=== PATIENT | female | born 1950 | race Caucasian/White ===

== ENCOUNTER → 2021-03-17 | Outpatient (CLI) | payer MEDICARE ==
[2021-03-17 10:37] LABS: BASO % 0.2 % (0.0-1.0); HEMATOCRIT 30.4 % (37.0-47.0); LYMPH # 0.7 10*3/uL (1.3-4.4); LYMPH % 12.3 % (27.0-41.0); MEAN CELL VOLUME 85.2 fl (81.0-99.0); MEAN CORPUSCULAR HGB 24.9 pg (27.0-31.0); MEAN CORPUSCULAR HGB CONC 29.3 g/dl (33.0-37.0); MEAN PLATELET VOLUME 10.2 fl (9.6-12.3); MONO # 0.4 10*3/uL (0.1-1.0); NEUT # 4.7 10*3/uL (2.3-7.9); PLATELET COUNT AUTOMATED 283 10*3/uL (130-400); RED BLOOD COUNT 3.57 10*6/uL (4.10-5.10); WHITE BLOOD COUNT 5.9 10*3/uL (4.8-10.8)
[2021-03-17 11:07] LABS: ALBUMIN 2.6 gm/dl (3.1-4.5); ALKALINE PHOSPHATASE 170 U/L (45-117); BUN 11 mg/dl (7-24); CHLORIDE 104 mmol/L (98-107); CHOLESTEROL 125 mg/dL (<200); LDL CHOLESTEROL 66 mg/dL (9-159); POTASSIUM 4.3 mmol/L (3.5-5.1); SGOT/AST 27 IU/L (3-35); SGPT/ALT 17 U/L (12-78); SODIUM 136 mmol/L (136-145); TOTAL PROTEIN 7.7 gm/dL (6.4-8.2); TRIGLYCERIDES 111 mg/dl (<150)
[2021-03-17 11:27] LABS: VITAMIN D, 25-HYDROXY 50.7 ng/mL (30-100)
== END | disposition home or self-care (01) ==
LOC: LAB 09:13
PROVIDERS: Internal Medicine; ATTEND Student in an Organized Health Care Education/Training Program
DX: K21.9 Gastro-esophageal reflux disease without esophagitis (principal); C34.92 Malignant neoplasm of unspecified part of left bronchus or lung; I48.91 Unspecified atrial fibrillation; R53.83 Other fatigue; Z85.3 Personal history of malignant neoplasm of breast; Z79.899 Other long term (current) drug therapy; Z87.891 Personal history of nicotine dependence; Z95.0 Presence of cardiac pacemaker; Z98.890 Other specified postprocedural states

== ENCOUNTER → 2021-04-09 | Outpatient (CLI) | payer MEDICARE ==
[2021-04-09 13:57] LABS: BILIRUBIN Negative (Negative); BLOOD Negative (Negative); CLARITY Clear (Clear); COLOR Dark Yellow (Yellow); GLUCOSE Negative (Negative); KETONE 1+ (Negative); LEUKO ESTERASE Trace (Negative); NITRITE Negative (Negative); PH 5.5 (4.5-8.0); SPECIFIC GRAVITY >= 1.030 (1.001-1.030)
[2021-04-09 14:31] LABS: BACTERIA 1+; MUCOUS 3+
== END | disposition home or self-care (01) ==
LOC: RESCLI 01:18
PROVIDERS: Internal Medicine; ATTEND Internal Medicine
DX: C34.92 Malignant neoplasm of unspecified part of left bronchus or lung (principal); K21.9 Gastro-esophageal reflux disease without esophagitis; I48.91 Unspecified atrial fibrillation; R53.83 Other fatigue; R30.0 Dysuria; R60.0 Localized edema; Z85.3 Personal history of malignant neoplasm of breast; Z87.891 Personal history of nicotine dependence; Z79.899 Other long term (current) drug therapy